=== PATIENT | female | born 2000 | race Caucasian/White ===

== ENCOUNTER 2021-10-26 21:59 | Emergency (ER) | payer BC ==
[~2021-10-26] VITALS: Ht 177.8 cm; Wt 50.8 kg
[2021-10-26 22:51] LABS: HEMATOCRIT 39.7 % (31.2-41.9); MEAN CORPUSCULAR HEMOGLOBIN 31.9 uug (24.7-32.8); MEAN CORPUSCULAR VOLUME 91.7 fL (75.5-95.3); PLATELET COUNT (AUTO) 267 K/uL (179-408)
[2021-10-26 22:54] LABS: CREATININE 0.9 mg/dL (0.6-1.3); POTASSIUM 3.9 mmol/L (3.5-5.1)
[2021-10-26 23:00] LABS: BILIRUBIN,TOTAL 0.4 mg/dL (0.2-1.0); TOTAL PROTEIN, SERUM 8.2 g/dL (6.4-8.2)
[2021-10-26] MEDS ORDERED: HYDR-4209 PO (23:29)
--- NOTE | 2021-10-26 23:29 | NUR ---
Patient discharged to home in stable condition. Written and verbal after care instructions given. Patient verbalizes understanding of instructions. Stressed follow up or return to ER for worsening s/s. Patient is a/ox4, NAD noted. Patient is able to walk with steady gait. Patient is accompanied by SO
[2021-10-26] MEDS ORDERED: HYDROCODONE/APAP 5-325MG TABLET PO ONE (23:30)
[2021-10-26] MEDS ORDERED: HYDROCODONE/APAP 5-325MG TABLET ONE (23:34)
[2021-10-26 23:45] VITALS: BP 133/73
== END 2021-10-26 23:45 | disposition home or self-care (01) ==
LOC: ER 21:59
DX: K92.1 Melena (principal); R10.30 Lower abdominal pain, unspecified; K58.9 Irritable bowel syndrome, unspecified; Z86.19 Personal history of other infectious and parasitic diseases
CPT/HCPCS: 36415; 83690; 85025; A4663